=== PATIENT | male | born 1945 | race Caucasian/White ===

== ENCOUNTER → 2020-10-10 | Outpatient (CLI) | payer MEDICARE ==
--- NOTE | 2020-10-11 12:21 | RAD ---
US DPLX ARTR EXTREM LOWER BILAT Indication: Reason: CLAUDICATION / Spl. Instructions: / History: Comparison: None. Procedure: Real-time grayscale, color flow Doppler, and Doppler spectral waveform analysis of the art erial system of the lower extremity is performed. Findings: Right lower extremity: Triphasic or biphasic waveform throughout the right lower extremity. Mild athe romatous plaque. No significant velocity elevation. No occlusion. Left lower extremity: Triphasic or biphasic waveform throughout the left lower extremity. Mild athero matous plaque. No significant velocity elevation. No occlusion. IMPRESSION: 1. Mild bilateral atheromatous plaque. 2. No hemodynamically significant arterial stenosis. Electronically signed by: Eulalio Morales DO (10/11/2020 12:19 PM) [id number]
== END ==
LOC: US 15:22
PROVIDERS: ATTEND Family Medicine
DX: I70.203 Unspecified atherosclerosis of native arteries of extremities, bilateral legs (principal)
CPT/HCPCS: 93925

== ENCOUNTER → 2021-07-18 | Outpatient (CLI) | payer MEDICARE ==
--- NOTE | 2021-07-18 15:52 | KCIC ---
EXAM: Bilateral lower extremity arterial Doppler sonogram. HISTORY: Claudication. Cigarette smoking. Hypertension. Diabetes. Atherosclerosis. TECHNIQUE: Amaro scale and color Doppler sonographic imaging of the lower extremity arteries with spec tral waveform analysis was performed. COMPARISON: None. FINDINGS: There are are biphasic and triphasic waveforms throughout the lower extremity arteries, wit h exception of abnormal monophasic waveforms within the right peroneal and dorsalis pedis arteries. T here are normal peak systolic velocities throughout the lower extremity arteries. There is calcified atherosclerotic plaque throughout the lower extremity arteries. IMPRESSION: 1. Monophasic waveforms within the right peroneal and dorsalis pedis arteries, suggesting hemodynamic ally significant proximal stenosis. 2. Calcified atherosclerotic plaque throughout the lower extremity arteries. There is no additional D oppler evidence of hemodynamically significant stenosis or occlusion. Electronically signed by: Magalie Castellanos MD (07/18/2021 3:50 PM) [id number]
== END ==
LOC: KCIC US 14:22
PROVIDERS: ATTEND Family Medicine
DX: I70.203 Unspecified atherosclerosis of native arteries of extremities, bilateral legs (principal)
CPT/HCPCS: 93925